=== PATIENT | female | born 1960 | race Caucasian/White ===

== ENCOUNTER → 2018-02-13 13:07 | Outpatient (CLI) | payer MEDICAID, SELFPAY ==
--- NOTE | 2018-02-13 13:16 | BI_ITS ---
MAMMOGRAPHY - BILATERAL SCREENING 3-D MICHELL SYNTHESIS REASON FOR EXAM: Female, 57 years old. Bilateral Screening 3-D tomosynthesis PERTINENT HISTORY: Family history breast carcinoma, grandmother age 90. TECHNIQUE: 2-D mammograms and 3-D Michell synthesis of the breast (s) were performed. CAD was performed. The surgical technologist notes best imaging possible, patient could not tolerate compression well. COMPARISON: 01/02/2017 through 11/30/2014. FINDINGS: The breast composition is heterogeneously dense that can obscure small breast masses. No new significant architectural distortion, asymmetric density, abnormal microcalcification cluster, dominant mass, adenopathy, skin thickening or nipple retraction identified. No significant abnormality identified with tomosynthesis. BI/SCREENING MAMM (CAD), BILAT IMPRESSION: No mammographic sign of malignancy. Routine yearly mammograms recommended. ASSESSMENT CATEGORY: BIRADS Category 2: Benign. A letter regarding these results will be sent to the patient by the facility within 30 days. FOLLOW UP RECOMMENDATION: Yearly follow up mammogram recommended. (A) Negative results should not deter biopsy as a palpable lesion if present should be followed on clinical grounds and biopsy performed if clinically persistent for 3 months or increasing size. Approximately 10% of breast cancers are not detected by mammography. A normal mammogram should not delay biopsy of a clinically suspicious abnormality. . Electronically Signed: Dennis Bender, at 21:05 EDT Tel , Service support ,
== END ==
PROVIDERS: Family Provider Family Medicine; PCP Family Medicine; Visit Provider Obstetrics & Gynecology
DX: Z12.31 Encounter for screening mammogram for malignant neoplasm of breast (principal)
CPT/HCPCS: 77063; 77067

== ENCOUNTER → 2018-06-01 18:17 | Outpatient (CLI) | payer MEDICAID, SELFPAY ==
[2018-06-01 18:55] LABS: Hemoglobin A1c 6.2 % (4.2-6.3)
== END ==
PROVIDERS: Family Provider Family Medicine; PCP Family Medicine; Visit Provider Family Medicine
DX: R73.02 Impaired glucose tolerance (oral) (principal)
CPT/HCPCS: 36415; 83036

== ENCOUNTER → 2018-06-25 10:38 | Outpatient (CLI) | payer MEDICAID, SELFPAY ==
[2018-06-25 11:59] LABS: Absolute Lymphocyte Count 3.18 X10^3/ul (0.83-4.51); Absolute Neutrophil Count 2.9 X10^3/uL (2.0-7.7); Basophil# 0.04 X10^3/uL; Basophil% 0.6 % (0-1); Eosinophils% 1.4 % (0-5); Hematocrit 39.8 % (37-47); Hemoglobin 13.1 g/dl (12.0-15.0); Lymphocyte # 3.18 X10^3/ul (4.0); Lymphocyte % 44.5 % (19-41); Mean Corp Hgb Conc 32.9 g/gl (32-36); Mean Corpuscular Hgb 32.1 pg (27.0-32.0); Mean Corpuscular Volume 97.5 fL (81-99); Mean Platelet Vol. 10.1 fl (6.2-12.0); Monocyte# 0.91 X10^3/uL; Monocyte% 12.7 % (0-10); Neutrophil # 2.91 X10^3/uL (2.7-7.7); Neutrophil % 40.7 % (47-70); Platelet Count 348 K/mm3 (150-450); RBC Distribution Width CV 12.9 % (11.6-14.6); RBC Distribution Width SD 45.2 fl (35.1-43.9); Red Blood Count 4.08 M/mm3 (4.2-5.4); White Blood Count 7.2 K/mm3 (4.4-11.0)
[2018-06-25 12:06] LABS: POSITIVE COUNT NO; POSITIVE DIFFERENTIAL NO; POSITIVE MORPHOLOGY NO
[2018-06-25 12:32] LABS: BUN 19 mg/dL (7-18); Creatinine, Serum 0.89 mg/dL (0.55-1.02); Glucose 106 mg/dL (74-106)
[2018-06-25 12:33] LABS: ALB/GLOB Ratio 1.1 RATIO (0.9-2.4); AST(SGOT) 18 U/L (15-37); Alanine Aminotransfer ALT/SGPT 32 U/L (13-56); Albumin, Serum 3.9 g/dL (3.2-5.0); Alkaline Phosphatase 62 U/L (45-117); Anion Gap 8 (5-15); BUN/Creat Ratio 21.4 RATIO (10-20); Calcium,Total 8.9 mg/dL (8.5-10.1); Chloride 109 mmol/L (98-107); EST Glomerular Filtration Rate 70 mL/min (>60); Est Glom Filt Rate - Afr Amer 84 mL/min (>60); Globulin 3.7 g/dL (2.2-4.2); Potassium 4.3 mmol/L (3.5-5.1); Protein, Total 7.6 g/dL (6.4-8.2); Sodium Level 140 mmol/L (136-145)
--- OUTSIDE RECORDS SUMMARY | 2018-08-11 05:29 | XMS RPT_ITS ---
:1960 Author Organization OHIP Care Team Providers Name Role Phone VON GORDON III Attending Unavailable VON GORDON III Referring Unavailable Lit Beckford Attending Unavailable Lit Beckford Primary Care Unavailable Nurse, Standard Attending Unavailable Lit Beckford Referring Unavailable Zaynab Cooney Attending Unavailable Zaynab Cooney Referring Unavailable Von Gordon III Primary Care Unavailable Lit Beckford Attending Unavailable Von Gordon III Primary Care Unavailable PROBLEMS PROBLEMS DATE TYPE CONDITION / CODE ATTENDING STATUS SOURCE 07/29/2018 Unknown K21.9 - Lit Beckford Gastro-esophageal [facility] reflux [facility] without Repository esophagitis / K21.9(ICD-10) 07/29/2018 Unknown R73.02 - Impaired Lit Beckford glucose tolerance [facility] ([facility] R73.02(ICD-10) Repository 04/07/2015 Active Impaired fasting NA Active [facility] glucose / [facility] [place] R73.01(ICD-10) Repository 08/13/2017 Active Other nursing home NA Active [facility] (current) drug [facility] [place] therapy / Repository Z79.899(ICD-10) PROCEDURES PROCEDURES No Procedure Records FoundRESULTS RESULTS CBC W/DIFF, AUTOMATED Collected: 06/25/2018 Status: F Source: [place] 10:41 AM [facility] REPOSITORY TYPE CODE TESTS RESULT OUT OF RANGE REFERENCE UNITS LAB L100.1000 4.4-11.0 K/mm3 Normal WBC 7.2 LAB L100.1200 4.2-5.4 M/mm3 Low RBC 4.08 LAB L100.1300 12.0-15.0 g/dl Normal HGB 13.1 LAB L100.1400 37-47 % Normal HCT 39.8 LAB L100.1500 81-99 fL Normal MCV 97.5 LAB L100.1600 27.0-32.0 pg High MCH 32.1 LAB L100.1700 32-36 g/gl Normal MCHC 32.9 LAB L100.1810 11.6-14.6 % Normal RDW CV 12.9 LAB L100.1820 35.1-43.9 fl High RDW SD 45.2 LAB L100.1900 150-450 K/mm3 Normal PLT 348 LAB L100.2000 6.2-12.0 fl Normal MPV 10.1 LAB L100.2100 47-70 % Low NEUT% 40.7 LAB L100.2200 19-41 % High LY% 44.5 LAB L100.2300 0-10 % High MONO% 12.7 LAB L100.2400 0-5 % Normal EO% 1.4 LAB L100.2500 0-1 % Normal BASO% 0.6 LAB L100.2550 0.0-0.9 % Normal IM GRAN % 0.100 Result Comment: IG% - Immature Granulocytes (promyelocytes, myelocytes and metamyelocytes) > 1% indicates that a LEFT SHIFT is Present. LAB L100.2620 2.0-7.7 X10 3/uL Normal Absolute Neut 2.9 LAB L100.2720 0.83-4.51 X10 3/ul Normal Absolute Lymph 3.18 Performed By: #### L100.0100, L500.4050, L501.5200, L501.9520 #### [facility] [place], [address] COMPREHENSIVE METABOLIC Collected: 06/25/2018 Status: F Source: [place] 10:41 AM [facility] REPOSITORY TYPE CODE TESTS RESULT OUT OF RANGE REFERENCE UNITS LAB L501.0100 74-106 mg/dL Normal GLU 106 Result Comment: Fasting Glucose result from 100 to 125 mg/dL suggests IMPAIRED HOMEOSTASIS per A.D.A. criteria. Please note revised GLUCOSE reference range effective 2017. LAB L501.1000 7-18 mg/dL High BUN 19 LAB L501.1100 0.55-1.02 mg/dL Normal CREAT,SERUM 0.89 Result Comment: The validity of the calculated GFR AND GFRAA in patients over 70 years has not been determined. Clinical correlation is essential. LAB L501.1110 >60 mL/min Normal EST GFR 70 Result Comment: Non- GFR Calc LAB L501.1115 >60 mL/min Normal EST GFR - AA 84 Result Comment: GFR Calc LAB L501.1300 10-20 RATIO High BUN/CRE 21.4 LAB L501.1500 6.4-8.2 g/dL T Normal PROT 7.6 LAB L501.1800 3.2-5.0 g/dL Normal ALB 3.9 LAB L501.1950 2.2-4.2 g/dL Normal GLOB 3.7 LAB L501.2000 0.9-2.4 RATIO Normal A/G 1.1 LAB L501.2200 8.5-10.1 mg/dL CA Normal 8.9 LAB L501.4100 15-37 U/L Normal AST 18 LAB L501.4305 45-117 U/L Normal ALK P 62 LAB L501.4405 13-56 U/L Normal ALT 32 LAB L501.4600 0.20-1.00 mg/dL T Normal BILI 0.20 LAB L501.5300 136-145 mmol/L NA Normal 140 LAB L501.5600 3.5-5.1 mmol/L K Normal 4.3 LAB L501.5900 98-107 mmol/L High CL 109 LAB L501.6100 21.0-32.0 mmol/L Normal CO2 23.0 LAB L501.6200 5-15 Normal GAP 8 Performed By: #### L100.0100, L500.4050, L501.5200, L501.9520 #### [facility] [address] [place], [address] MAGNESIUM Collected: 06/25/2018 Status: F Source: [place] 10:41 AM [facility] REPOSITORY TYPE CODE TESTS RESULT OUT OF RANGE REFERENCE UNITS LAB L501.5200 1.6-2.6 mg/dL Normal MG 2.0 Performed By: #### L100.0100, L500.4050, L501.5200, L501.9520 #### [facility] [place], [address] THYROID STIM HORMONE Collected: 06/25/2018 Status: F Source: [place] (TSH) 10:41 AM [facility] REPOSITORY TYPE CODE TESTS RESULT OUT OF RANGE REFERENCE UNITS LAB L501.9520 0.358-3.74 uIU/mL Normal TSH 2.20 Performed By: #### L100.0100, L500.4050, L501.5200, L501.9520 #### [facility] [place], [address] HEMOGLOBIN A1C Collected: 06/01/2018 Status: F Source: [place] 6:24 PM [facility] REPOSITORY TYPE CODE TESTS RESULT OUT OF RANGE REFERENCE UNITS LAB L501.9985 4.2-6.3 % Normal HGB A1C 6.2 Performed By: #### L501.9985 #### [facility] [place], [address] SCREENING MAMM (CAD), Observed: 02/13/2018 Status: F Source: [place] B[place] 1:16 PM [facility] REPOSITORY [facility] Imaging Services [address] [place] [id number] SCREENING MAMM (CAD), BILAT MR#: [id number] Acct: [id number] Name: NORAH MUNGUIA Rep #: [id number] : 1960 F 57 From: Dennis Bender MD PCP: Von Gordon III, MD Status: REG CLI Study: SCREENING MAMM (CAD), BILAT Date of Exam: 02/13/18 Exam# [id number] Ordering Dr: Zaynab Cooney MD MAMMOGRAPHY - BILATERAL SCREENING 3-D ZACK SYNTHESIS REASON FOR EXAM: Female, 57 years old. Bilateral Screening 3-D tomosynthesis PERTINENT HISTORY: Family history breast carcinoma, grandmother age 90. TECHNIQUE: 2-D mammograms and 3-D Zack synthesis of the breast (s) were performed. CAD was performed. The industrial engineering technologist notes best imaging possible, patient could not tolerate compression well. COMPARISON: 01/02/2017 through 11/30/2014. FINDINGS: The breast composition is heterogeneously dense that can obscure small breast masses. No new significant architectural distortion, asymmetric density, abnormal microcalcification cluster, dominant mass, adenopathy, skin thickening or nipple retraction identified. No significant abnormality identified with tomosynthesis. BI/SCREENING MAMM (CAD), BILAT IMPRESSION: No mammographic sign of malignancy. Routine yearly mammograms recommended. ASSESSMENT CATEGORY: BIRADS Category 2: Benign. A letter regarding these results will be sent to the patient by the facility within 30 days. FOLLOW UP RECOMMENDATION: Yearly follow up mammogram recommended. (A) Negative results should not deter biopsy as a palpable lesion if present should be followed on clinical grounds and biopsy performed if clinically persistent for 3 months or increasing size. Approximately 10% of breast cancers are not detected by mammography. A normal mammogram should not delay biopsy of a clinically suspicious abnormality. . Electronically Signed: Dennis Bender, at 21:05 EDT Tel , Service support , CC: Zaynab Cooney MD; Von Gordon III, MD Feed Adviser: Signed PROGRESS Observed: 08/14/2017 Status: COMPLETED Source: [place] 7:12 PM [facility] REPOSITORY HNO ID: [id number] Author: Von Gordon III Service: (none) Author Type: Physician Type: Progress Notes Filed: 08/14/2017 7:12 PM Note Text: Norah, The lab results look great! Continue healthy diet and regular exercise. May recheck in a year. Von Gordon III, MD, FAAFP LIPID PANEL, NONFAST Collected: 08/13/2017 Status: F Source: [place] 3:12 PM [facility] REPOSITORY TYPE CODE TESTS RESULT OUT OF REFERENCE UNITS RANGE LAB CHOLNF <200 mg/dL Total Cholesterol NF 186 Result Comment: <200 mg/dL, Desirable 200-239 mg/dL, Borderline high >239 mg/dL, High LAB TRIGNF <150 mg/dL Triglycerides, NF 119 Result Comment: <150 mg/dL, Normal 150-199 mg/dL, Borderline high 200-499 mg/dL, High >499 mg/dL, Very high LAB HDLNF >39 mg/dL HDL Cholesterol, NF 70 Result Comment: 40-59 mg/dL, Acceptable >59 mg/dL, High: Negative risk factor for coronary heart disease <40 mg/dL, Low: Positive risk factor for coronary heart disease LAB LDLNF <100 mg/dL LDL Cholesterol, NF 92 Result Comment: <100 mg/dL, Optimal 100-129 mg/dL, Near optimal/above optimal 130-159 mg/dL, Borderline high 160-189 mg/dL, High >189 mg/dL, Very high Secondary prevention optimal LDL Cholesterol levels are recommended to be < 70 mg/dL LAB NOHDLN <130 mg/dL Non HDL Chol, 116 NF Result Comment: <130 mg/dL, Optimal 130-159 mg/dL, Near optimal/above optimal 160-189 mg/dL, Borderline high 190-219 mg/dL, High >219 mg/dL, Very high Secondary prevention optimal non HDL Cholesterol levels are recommended to be < 100 mg/dL LAB VLDLNF <30 mg/dL VLDL Cholesterol, NF 24 LAB TCHDLN <5.10 mg/dL T Chol/HDL Ratio NF 2.66 LAB LDLHDN <2.54 mg/dL LDL/HDL Ratio, NF 1.31 Result Comment: Reference: 1. National Cholesterol Education Program ATP III Guideline At-A-Glance Quick Desk Reference: National Heart, Lung, and Blood [place]. National Institutes of Health. 2001: NIH Publication No. 01-3305. 2. An International Atherosclerosis Society position paper: global recommendations for the management of dyslipidemia: executive summary, Atherosclerosis. 2014: 232(2):410-413. Performed By: #### LIPNF #### [facility] [address] [place], [place] [address] COMP METABOLIC PANEL Collected: 08/13/2017 Status: F Source: [place] 3:10 PM [facility] REPOSITORY TYPE CODE TESTS RESULT OUT OF REFERENCE UNITS RANGE LAB TP 6.3-8.0 g/dL Protein, Total 7.7 LAB ALB 3.9-4.9 g/dL Albumin 4.7 LAB CA 8.5-10.2 mg/dL Calcium, Total 9.8 LAB TBIL 0.2-1.3 mg/dL Bilirubin, Total 0.2 LAB ALKP 32-117 U/L Alkaline Phosphatase 68 LAB AST 13-35 U/L AST 22 LAB GLU 74-99 mg/dL Glucose 88 Result Comment: The [place] [employer] (ADA) provides guidance for cutoff values for fasting glucose and random glucose. The ADA defines fasting as no caloric intake for at least 8 hours. Fas ting plasma glucose results between 100 to 125 mg/dL indicate increased risk for diabetes (prediabetes). Fasting plasma glucose results greater than or equal to 126 mg/dL meet the criteria for diagnosis of diabetes. In the absence of unequivocal hyperglycemia, results should be confirmed by repeat testing. In a patient with classic symptoms of hyperglycemia or hyperglycemic crisis, random plasma glucose results greater than or equal to 200 mg/dL meet the criteria for diagnosis of diabetes. Reference: Standards of Medical Care in Diabetes 2016, [place] [employer] Association. Diabetes Care. 2016.39(Suppl 1). LAB BUN 7-21 mg/dL BUN 15 LAB CRET 0.58-0.96 mg/dL Creatinine 0.87 LAB NA 136-144 mmol/L Sodium 140 LAB K 3.7-5.1 mmol/L Potassium 4.3 LAB CL 97-105 mmol/L Chloride 102 LAB CO2 22-30 mmol/L CO2 22 LAB AGAP 9-18 mmol/L Anion Gap 16 LAB ALT 7-38 U/L ALT 25 LAB GFRAA eGFR- Amer. >60 LAB GFRNAA . eGFR-All Other Races >60 Result Comment: eGFR (Estimated GFR) Units of measure: mL/min/1.73 meters squared eGFR is derived from the reexpressed MDRD Study equation using the following parameters: serum creatinine, age, gender and race. The creatinine assay has been calibrated to be traceable to IDMS. An eGFR <60 mL/min/1.73m2 for >3 months is consistent with chronic kidney disease. Refer to KDOQI guidelines for clinical interpretation. In patients with unstable renal function, e.g. those with acute kidney injury, the eGFR may not accurately reflect actual GFR. Performed By: #### CMP, HBA1C #### [facility] [address], [place] [address] HEMOGLOBIN A1C Collected: 08/13/2017 Status: F Source: [place] 3:10 PM [facility] REPOSITORY TYPE CODE TESTS RESULT OUT OF REFERENCE UNITS RANGE LAB HGBA1C 4.3-5.6 % High Hemoglobin A1c 5.9 LAB HBA0 mg/dL Est. Average Glucose 123 Result Comment: eAG: (Estimated average glucose) is a calculated value from HgbA1c and is client services representative of the average blood glucose level in the last 2-3 month period. Performed By: #### CMP, HBA1C #### [facility] [address], [place] [address] PROGRESS Observed: 08/13/2017 Status: COMPLETED Source: [place] 2:22 PM [facility] REPOSITORY HNO ID: [id number] Author: Von Gordon III Service: (none) Author Type: Physician Type: Progress Notes Filed: 08/13/2017 5:57 PM Note Text: SUBJECTIVE: Chief Complaint: Norah Munguia is a 57 year old female who presents for a comprehensive problem evaluation. New concerns today include 1. recurrent URI with cough. tessalon helped from UC 2. past couple of days has head congestion with productive cough and nasal congestion and MARIE. 3. hx of IBS 4. migraines--hairspray trigger, computer screen 5. pressure feeling L post scapula at the area of my collapsed lung several yrs. Not pleuritic, but may be worse with prolonged standing. 6. episodic dyspnea during the current URI. 7. L CTS: still has numbness L index and L middle fingers. Annoying but she is not interested in getting EMG or surgery 8. acne 9. . Exercises regularly - No Mammogram is due - No Last mammogram was 2017 Colon cancer screening is up to date - No Last Colonoscopy was done never Cholesterol screening is up to date - No PAST MEDICAL HISTORY Diagnosis Date - Fracture of one rib of left side with routine healing 07/20/2015 - Hiatal hernia - Irritable bowel syndrome - Irritable bowel syndrome (IBS) 03/16/2014 - Spleen laceration 11/04/2008 MENSTRUAL HISTORY PERIOD REGULARITY: FLOW CHARACTERISTICS: DYSMENORRHEA: CYCLIC SYMPTOMS: HORMONE REPLACEMENT: PAST SURGICAL HISTORY Procedure Laterality Date - DANDC, DIAG AND/OR THERAPEUTIC Dilation AND curettage - EMBOLIZATION (NON NEURO) 10/2009 Lacerated spleen - EXPLORATORY OF ABDOMEN 10/2009 Laparotomy, exp - PAST SURGICAL HISTORY OF foot surgeries x 6 - REMOVAL OF TONSILS,<12 Y/O Tonsillectomy FAMILY HISTORY Problem Relation Age of Onset - None Father - Cancer Maternal Grandmother breast - Coronary Artery Disease Paternal Grandfather - Dementia [Other] [OTHER] Mother Social History Marital status: Spouse name: Years of education: Number of children: 0 Social History Main Topics Smoking status: Former Smoker Packs/day: 0.00 Years: 0.00 Smokeless status: Never Used Comment: quite approx 1997 Alcohol use: Yes Comment: occasional Drug use: No Sexual activity: Not Currently Immunization History Administered Date(s) Administered DT(PEDIATRIC) 04/19/1976 04/08/1996 DTP/HIB [birth year] 02/06/1962 10/28/1963 02/18/1967 OPV [birth year] 02/06/1962 02/18/1967 04/19/1976 Tdap (Age 7+) 08/21/2011 [facility] Immunization 10/28/1963 ACTIVE PROBLEM LIST Migraine Gerd (Gastroesophageal Reflux Disease) Carpal Tunnel Syndrome Anxiety Irritable Bowel Syndrome (Ibs) Impaired Fasting Blood Sugar Irritable Bowel Syndrome With Diarrhea Pain in Right Shoulder Left Carpal Tunnel Syndrome Abdominal Wall Pain Incisional Hernia, 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 DERMATOLOGIC: Denies any new skin conditions, rashes or changing moles. EYES: ENT: RESPIRATORY: Denies any cough, dyspnea, or wheezing. CARDIOVASCULAR: Denies any chest pain with exertion or at rest, palpitations, syncope, or edema. BREASTS: GASTROINTESTINAL: Denies any nausea, vomiting, abdominal pain, heartburn, changes in bowel habit, Denies any rectal bleeding. GENITOURINARY: Denies any urinary frequency, urgency, incontinence, dysuria. Denies vaginal odor, discharge or lesions. Denies irregular vaginal bleeding or spotting. MUSCULOSKELETAL: Denies any joint swelling, crepitus, joint pain, or loss of range of motion., Denies back pain. NEURO: Denies any headaches, tremors, dizziness, vertigo, memory loss, confusion., Denies weakness, numbness or tingling.. PSYCHIATRIC: Denies any sleeping problems, history of abuse, marital discord., Denies any anxiety or depression. HEMATOLOGIC/LYMPHATIC/IMMUNOLOGIC: Denies anemia, bruising, bleeding abnormalities. ENDOCRINE: Denies any heat or cold intolerance, polyuria or polydipsia. OBJECTIVE: PHYSICAL EXAMINATION: BP 113/72 Pulse 86 Resp 20 Ht 164.5 cm (5' 4.75) Wt 83.9 kg (185 lb) LMP 04/04/2009 BMI 31.02 kg/m2 GENERAL APPEARANCE: Well appearing, alert, in no acute distress, well-hydrated, well nourished. SKIN: Skin color, texture, turgor normal, no suspicious rashes or lesions, benign, unchanging macule left cheek HEAD: No significant findings. EYES: Conjunctivae are normal EARS: External ears normal, canals clear NOSE/SINUSES: Nares normal. Septum midline., Some sinus tenderness forehead OROPHARYNX: Lips, mucosa, and tongue normal, teeth and gums normal, oropharynx normal NECK: Supple, no lymphadenopathy, normal thyroid, no carotid bruits and no JVD BACK: Back symmetric, Normal curvature, No CVAT. LUNGS: Normal breath sounds, Clear to auscultation, No wheezes, No crackles HEART:Normal PMI, Regular rate and rhythm, Normal heart sounds, S1 and S2 and No murmurs. BREASTS: Deferred to TITLE INSURANCE SALES REPRESENTATIVE ABDOMEN: Soft, Non-tender, No palpable masses and No hepatosplenomegaly. EXTREMITIES:Normal, No deformities, No skin discoloration, No edema and Normal pulses bilaterally. NEURO: Awake, alert and oriented x 3, Normal gait and No involuntary motions. GENITALIA: Deferred to TITLE INSURANCE SALES REPRESENTATIVE RECTAL: Deferred to TITLE INSURANCE SALES REPRESENTATIVE ASSESSMENT URI IBS with diarrhea?well controlled acne?mostly on the face migraines?fairly well-controlled with present medication probable L CTS--mild and not disabling impaired fasting glucose PLAN: healthy diet and regular exercise try aldactone 25mg every AM for acne sinus flushing with neti pot as needed sumatriptan 50 mg as directed dicyclomine as needed for abdominal spasms and diarrhea I recommend flu shot and screening colonoscopy--declined Cologuard labs as ordered same other medications Von Gordon III MD CNOV Observed: 08/13/2017 Status: COMPLETED Source: [place] 2:00 PM [facility] REPOSITORY Office Visit (FAMPWS) NORAH MUNGUIA ([id number]) 1960 F Date Time Provider Department 08/13/17 2:00 PM VON GORDON III During your visit today, we recorded the following information about you: Pulse Respiration Blood pressure Weight 86/minute 20/minute 113/72 83.9 kg Height 1.645 m Von Gordon III MD 08/13/2017 5:57 PM Signed SUBJECTIVE: Chief Complaint: Norah Munguia is a 57 year old female who presents for a comprehensive problem evaluation. New concerns today include 1. recurrent URI with cough. tessalon helped from UC 2. past couple of days has head congestion with productive cough and nasal congestion and MARIE. 3. hx of IBS 4. migraines--hairspray trigger, computer screen 5. pressure feeling L post scapula ANDquot;at the area of my collapsed lung several yrsANDquot;. Not pleuritic, but may be worse with prolonged standing. 6. episodic dyspnea during the current URI. 7. L CTS: still has numbness L index and L middle fingers. Annoying but she is not interested in getting EMG or surgery 8. acne 9. . Exercises regularly - No Mammogram is due - No Last mammogram was 2017 Colon cancer screening is up to date - No Last Colonoscopy was done never Cholesterol screening is up to date - No PAST MEDICAL HISTORY Diagnosis Date - Fracture of one rib of left side with routine healing 07/20/2015 - Hiatal hernia - Irritable bowel syndrome - Irritable bowel syndrome (IBS) 03/16/2014 - Spleen laceration 11/04/2008 MENSTRUAL HISTORY PERIOD REGULARITY: FLOW CHARACTERISTICS: DYSMENORRHEA: CYCLIC SYMPTOMS: HORMONE REPLACEMENT: PAST SURGICAL HISTORY Procedure Laterality Date - DANDamp;C, DIAG AND/OR THERAPEUTIC Dilation ANDamp; curettage - EMBOLIZATION (NON NEURO) 10/2009 Lacerated spleen - EXPLORATORY OF ABDOMEN 10/2009 Laparotomy, exp - PAST SURGICAL HISTORY OF foot surgeries x 6 - REMOVAL OF TONSILS,ANDlt;13 Y/O Tonsillectomy FAMILY HISTORY Problem Relation Age of Onset - None Father - Cancer Maternal Grandmother breast - Coronary Artery Disease Paternal Grandfather - Dementia [Other] [OTHER] Mother Social History Marital status: Spouse name: Years of education: Number of children: 0 Social History Main Topics Smoking status: Former Smoker Packs/day: 0.00 Years: 0.00 Smokeless status: Never Used Comment: quite approx 1997 Alcohol use: Yes Comment: occasional Drug use: No Sexual activity: Not Currently Immunization History Administered Date(s) Administered DT(PEDIATRIC) 04/19/1976 04/08/1996 DTP/HIB [birth year] 02/06/1962 10/28/1963 02/18/1967 OPV [birth year] 02/06/1962 02/18/1967 04/19/1976 Tdap (Age 7+) 08/21/2011 [facility] Immunization 10/28/1963 ACTIVE PROBLEM LIST Migraine Gerd (Gastroesophageal Reflux Disease) Carpal Tunnel Syndrome Anxiety Irritable Bowel Syndrome (Ibs) Impaired Fasting Blood Sugar Irritable Bowel Syndrome With Diarrhea Pain in Right Shoulder Left Carpal Tunnel Syndrome Abdominal Wall Pain Incisional Hernia, 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 DERMATOLOGIC: Denies any new skin conditions, rashes or changing moles. EYES: ENT: RESPIRATORY: Denies any cough, dyspnea, or wheezing. CARDIOVASCULAR: Denies any chest pain with exertion or at rest, palpitations, syncope, or edema. BREASTS: GASTROINTESTINAL: Denies any nausea, vomiting, abdominal pain, heartburn, changes in bowel habit, Denies any rectal bleeding. GENITOURINARY: Denies any urinary frequency, urgency, incontinence, dysuria. Denies vaginal odor, discharge or lesions. Denies irregular vaginal bleeding or spotting. MUSCULOSKELETAL: Denies any joint swelling, crepitus, joint pain, or loss of range of motion., Denies back pain. NEURO: Denies any headaches, tremors, dizziness, vertigo, memory loss, confusion., Denies weakness, numbness or tingling.. PSYCHIATRIC: Denies any sleeping problems, history of abuse, marital discord., Denies any anxiety or depression. HEMATOLOGIC/LYMPHATIC/IMMUNOLOGIC: Denies anemia, bruising, bleeding abnormalities. ENDOCRINE: Denies any heat or cold intolerance, polyuria or polydipsia. OBJECTIVE: PHYSICAL EXAMINATION: BP 113/72 Pulse 86 Resp 20 Ht 164.5 cm (5' 4.75ANDquot;) Wt 83.9 kg (185 lb) LMP 04/04/2009 BMI 31.02 kg/m2 GENERAL APPEARANCE: Well appearing, alert, in no acute distress, well-hydrated, well nourished. SKIN: Skin color, texture, turgor normal, no suspicious rashes or lesions, benign, unchanging macule left cheek HEAD: No significant findings. EYES: Conjunctivae are normal EARS: External ears normal, canals clear NOSE/SINUSES: Nares normal. Septum midline., Some sinus tenderness forehead OROPHARYNX: Lips, mucosa, and tongue normal, teeth and gums normal, oropharynx normal NECK: Supple, no lymphadenopathy, normal thyroid, no carotid bruits and no JVD BACK: Back symmetric, Normal curvature, No CVAT. LUNGS: Normal breath sounds, Clear to auscultation, No wheezes, No crackles HEART:Normal PMI, Regular rate and rhythm, Normal heart sounds, S1 and S2 and No murmurs. BREASTS: Deferred to TITLE INSURANCE SALES REPRESENTATIVE ABDOMEN: Soft, Non-tender, No palpable masses and No hepatosplenomegaly. EXTREMITIES:Normal, No deformities, No skin discoloration, No edema and Normal pulses bilaterally. NEURO: Awake, alert and oriented x 3, Normal gait and No involuntary motions. GENITALIA: Deferred to TITLE INSURANCE SALES REPRESENTATIVE RECTAL: Deferred to TITLE INSURANCE SALES REPRESENTATIVE ASSESSMENT URI IBS with diarrhea?well controlled acne?mostly on the face migraines?fairly well-controlled with present medication probable L CTS--mild and not disabling impaired fasting glucose PLAN: healthy diet and regular exercise try aldactone 25mg every AM for acne sinus flushing with neti pot as needed sumatriptan 50 mg as directed dicyclomine as needed for abdominal spasms and diarrhea I recommend flu shot and screening colonoscopy--declined Cologuard labs as ordered same other medications CARMENCIAT Dugan MD, III MD 08/13/2017 2:58 PM Signed PLAN: healthy diet and regular exercise try aldactone 25mg every AM for acne sinus flushing with neti pot as needed sumatriptan 50 mg as directed dicyclomine as needed for abdominal spasms and diarrhea I recommend flu shot and screening colonoscopy--declined Cologuard labs as ordered same other medications Von Gordon III MD Referring Provider: SELF [200] Allergies As of Date: 08/13/2017 Noted Allergy Reaction ERYTHROMYCIN 05/11/2012 8 - GI Upset PREDNISONE 08/13/2017 8 - GI Upset Date Reviewed: 08/13/2017 Reviewed by: Liane Canales LPN - Fully Assessed Reason for Visit: Yearly Exam [187] Primary Visit Diagnosis:Intractable migraine with aura without status migrainosus [G43.119] Other Visit Diagnoses:Irritable bowel syndrome with diarrhea [K58.0] Impaired fasting blood sugar [R73.01] Encounter for routine adult medical exam with abnormal findings [Z00.01] Upper respiratory tract infection, unspecified type [J06.9] Cough [R05] Palpitations [R00.2] Screening for colon cancer [Z12.11] Order(s):COMP METABOLIC PANEL [SQCMP] Order #: [id number] FUTURE HGB A1C [YSEQH7Z] Order #: [id number] FUTURE Benzonatate 200 mg capsuleTake 1 capsule by mouth three times daily as needed.Disp: 30 capsuleRfl: 0 atenolol (TENORMIN) 25 mg tabletTake 1 tablet by mouth once daily.Disp: 30 tabletRfl: 11 dicyclomine (BENTYL) 10 mg capsuleTake 1 capsule by mouth three times daily as needed.Disp: 30 capsuleRfl: 11 SUMAtriptan (IMITREX) 50 mg mg as needed for migraine. May repeat every 2 hrs as needed for continued migraine (max 4/day; 9/mo.)Disp: 9 tabletRfl: 11 COLOGUARD [SQCOLGRD] Order #: [id number] FUTURE spironolactone (ALDACTONE) 25 mg tabletTake 1 tablet by mouth once daily.Disp: 30 tabletRfl: 11 Prescriptions as of 08/13/2017 Sig: BENZONATATE 200 MG CAPSULE Take 1 capsule by mouth three* ATENOLOL 25 MG TABLET Take 1 tablet by mouth once d* DICYCLOMINE 10 MG CAPSULE Take 1 capsule by mouth three* SUMATRIPTAN 50 MG TABLET 50 mg as needed for migraine.* FLUTICASONE 50 MCG/ACTUATION * Use 1 [place] in each nostril o* ERYTHROMYCIN WITH ETHANOL 2 %* Apply 1 application to affect* LORATADINE 10 MG TABLET Take 1 tablet by mouth once d* IBUPROFEN 200 MG TABLET Take 200 mg by mouth every 6 * * MULTI-VITAMIN ORAL Take by mouth. SPIRONOLACTONE 25 MG TABLET Take 1 tablet by mouth once d* Problem List As Of Date 08/13/2017 Noted Resolved Migraine [G43.909] INVALID FOR* GERD (Gastroesophageal Reflux Disease) [K21.9] INVALID FOR* Carpal Tunnel Syndrome [G56.00] INVALID FOR* Anxiety [F41.9] INVALID FOR* Irritable bowel syndrome (IBS) [K58.9] INVALID FOR* Impaired fasting blood sugar [R73.01] INVALID FOR* Irritable bowel syndrome with diarrhea [K58.0] INVALID FOR* Pain in right shoulder [M25.511] INVALID FOR* Left carpal tunnel syndrome [G56.02] INVALID FOR* Abdominal wall pain [R10.9] INVALID FOR* Incisional hernia, without obstruction or gangr*INVALID FOR* Fracture of one rib of left side with routine h*INVALID FOR* Neck pain [M54.2] INVALID FOR* Piriformis syndrome of right side [G57.01] INVALID FOR* Other instructions from your clinician: PLAN: healthy diet and regular exercise try aldactone 25mg every AM for acne sinus flushing with neti pot as needed sumatriptan 50 mg as directed dicyclomine as needed for abdominal spasms and diarrhea I recommend flu shot and screening colonoscopy--declined Cologuard labs as ordered same other medications Von Gordon III MD Prescriptions ordered this encounter Disp Refills Start End BENZONATATE 200 MG CAPSULE 30 c* 0 08/13/2017 Route: ORAL Sig: Take 1 capsule by mouth three times daily as needed. ATENOLOL 25 MG TABLET 30 t* 11 08/13/2017 Route: ORAL Sig: Take 1 tablet by mouth once daily. DICYCLOMINE 10 MG CAPSULE 30 c* 11 08/13/2017 Route: ORAL Sig: Take 1 capsule by mouth three times daily as needed. SUMATRIPTAN 50 MG TABLET 9 ta* 11 08/13/2017 Si mg as needed for migraine. May repeat every 2 hrs as needed for continued migraine (max 4/day; 9/mo.) SPIRONOLACTONE 25 MG TABLET 30 t* 11 08/13/2017 Route: ORAL Sig: Take 1 tablet by mouth once daily. Medications Discontinued During This Encounter predniSONE (DELTASONE) 20 mg tablet 10 t* 0 06/30/2017 08/13/2017 Sig: Prednisone 40 mg (2-20mg tablets) po QD for 5 days Disc: Discontinued by Patient Benzonatate 200 mg capsule 30 c* 0 06/30/2017 08/13/2017 Route: ORAL Sig: Take 1 capsule by mouth three times daily as needed. Disc: Reason for discontinue is not on file. atenolol (TENORMIN) 25 mg tablet 90 t* 3 12/12/2016 08/13/2017 Route: ORAL Sig: Take 1 tablet by mouth once daily. Disc: Reason for discontinue is not on file. dicyclomine (BENTYL) 10 mg capsule 30 c* 1 06/11/2016 08/13/2017 Route: ORAL Sig: Take 1 capsule by mouth three times daily as needed. Disc: Reason for discontinue is not on file. SUMAtriptan (IMITREX) 50 mg tablet 12/12/2016 08/13/2017 Class: Med Update Route: ORAL Sig: Take 2 tablets by mouth once daily. 1 tablet as needed Disc: Reason for discontinue is not on file. venlafaxine (EFFEXOR) 37.5 mg tablet 30 t* 11 12/12/2016 08/13/2017 Route: ORAL Sig: Take 1 tablet by mouth once daily. Disc: Discontinued by Patient topiramate (TOPAMAX) 25 mg tablet 60 t* 3 12/12/2016 08/13/2017 Route: ORAL Sig: Take 1 tablet by mouth twice daily. Disc: Discontinued by Patient cholestyramine low-calorie (QUESTRAN* 30 P* 1 05/02/2015 08/13/2017 Route: ORAL Sig: Take 1 Packet by mouth as needed (MIX ONE PACKET IN 6 OZ. OF LIQUID 1-2 TIMES DAILY NEEDED FOR DIARRHEA). Disc: Discontinued by Patient Encounter Status:Closed by VON GORDON III, MD on 08/13/17 ALLERGIES ALLERGIES DATE TYPE / CODE NAME / CODE REACTION SEVERITY SOURCE 08/13/2017 DRUG PREDNISONE GI UPSET [facility] INGREDI/419 [facility] [id number](SNOM Repository ED CT) 05/11/2012 [id number] ERYTHROMYCIN GI UPSET [facility] 003(SNOMED [facility] CT) Repository ENCOUNTERS ENCOUNTERS ADMIT/DISCHARGE ACCOUNT ADMITTING ENCOUNTER LOCATION SOURCE NUMBER CLASS 07/29/2018/07/29/19 [id number] Ambulatory BMSBuilding:[address] [facility] Repository 06/25/2018 [id number] [facility] ing:MFPLAB Repository 06/01/2018 [id number] [facility] ing:LAB Repository 02/13/2018 [id number] [facility] ing:OPBI Repository 08/13/2017/08/13/[id number] Repository 08/13/2017/08/14/[id number] Repository PAYERS PAYERS ENCOUNTER GUARANTOR PAYER SUBSCRIBER SOURCE 07/29/2018 NORAH Shaffer [id number] Insurance:CARESOURCEP DROUHARDDOB[facility] VONLuz declansarabjitbernie Number: [id number] [address]Znd: [id number] Repository Date:2018-07-29 O (BR) [address]ATTN: [place] [address]KN: 07/29/2018 Secondary NOT GIVENUNK [place] Insurance:SELF PAY [facility] Number: Effective Repository Date:2018-07-29 06/25/2018 NORAH Lind Primary NORAH L [place] [id number] Insurance:CARESOURCEP DROU[facility]ARDD[facility] Number: [id number] Valley Hospital [address]Tvn: [id number] Repository Date:2018-06-25P O (HP) [address]ATTN: [facility] [place] [address]DJ: 06/25/2018 Secondary NOT GIVENUNK [place] Insurance:SELF PAY [facility] Number: Effective Repository Date:2018-06-25 06/01/2018 NORAH L Primary NORAH L [place] [id number] Insurance:CARESOURCEP DROUHARDDOB[facility] Number: [id number] Valley Hospital [address]Yuk: [id number] Repository Date:2018-06-01P O (HP) [address]ATTN: [place] [address]CE: 06/01/2018 Secondary NOT GIVENUNK [place] Insurance:SELF PAY [facility] Number: Effective Repository Date:2018-06-01 02/13/2018 NORAH L Primary NORAH L [place] [id number] Insurance:CARESOURCEP DROUHARDDOB: [facility] Number: [id number] Valley Hospital [address]Xfr: [id number] Repository Date:2018-01-21P O () [address]ATTN: [place] [address]YX: 02/13/2018 Secondary NOT GIVENUNK [place] Insurance:SELF PAY [facility] Number: Effective Repository Date:2018-01-21
== END ==
PROVIDERS: Family Provider Family Medicine; PCP Family Medicine; Visit Provider Family Medicine
DX: K21.9 Gastro-esophageal reflux disease without esophagitis (principal); R00.2 Palpitations
CPT/HCPCS: 36415; 80053; 83735; 84443; 85025

== ENCOUNTER → 2020-04-18 | Outpatient (CLI) | payer SELFPAY | END | disposition home or self-care (01) | LOC: MTDU 04-20 12:58 | PROVIDERS: PCP Family Medicine; Referring Provider Nurse Practitioner Family; Visit Provider Nurse Practitioner Family | DX: Z20.828 Contact with and (suspected) exposure to other viral communicable diseases (principal) | CPT/HCPCS: 87635; C9803; U0003 ==